=== PATIENT | female | born 1965 | race Caucasian/White ===

== ENCOUNTER 2019-12-31 13:39 | Emergency (ER) | payer OTHER ==
[2019-12-31] MEDS ORDERED: Nitroglycerin 0.4 MG Tab.SL SL PRN (14:04)
[2019-12-31] MEDS ORDERED: Ondansetron 4 MG/2 ML SDV IVPUSH ONE (14:04)
[2019-12-31] MEDS ORDERED: Acetaminophen 500 MG Tab PO ONE (14:04)
[2019-12-31] MEDS ORDERED: Aspirin 81 MG Tab.Chew PO ONE (14:04)
[2019-12-31] MEDS ORDERED: Sodium Chloride 0.9% 10 ML Syringe FLUSH PRN (14:05)
[2019-12-31] MEDS ORDERED: Sodium Chloride 0.9% 1,000 ML IV SCH (14:15)
--- NOTE | 2019-12-31 17:19 | EDM.PDOC ---
ED HPI GENERAL MEDICAL PROBLEM - General Chief Complaint: Respiratory Problem Stated Complaint: CHEST PAINS Time Seen by Provider: 12/31/19 13:50 Source of Information: Reports: Patient History Limitations: Reports: No Limitations - History of Present Illness INITIAL COMMENTS - FREE TEXT/NARRATIVE: Patient presented to the ED because of fever,chills,N/V/D, headache,body malaise . She started to have fever and dyspnea 3 days ago. She is a visitor from [place] and is staying in a hotel currently. Treatments SALES DEVELOPMENT REPRESENTATIVE: Reports: Acetaminophen Other Treatments SALES DEVELOPMENT REPRESENTATIVE: tylenol at 0900 today Middle Chest Pain Score (Numeric/FACES): 1 - Related Data Allergies Allergy/AdvReac Type Severity Reaction Status Date / Time Sulfa (Sulfonamide Allergy Swelling Verified 12/31/19 15:02 Antibiotics) Home Meds: Home Meds Diphenoxylate HCl/Atropine [Lomotil Tablet] 2 each PO Q6H PRN #15 tablet 12/31/19 [Rx] Escitalopram [Lexapro] 10 mg PO DAILY 12/31/19 [History] Gabapentin [Gralise] 600 mg PO DAILY 12/31/19 [History] Hydrocodone/Acetaminophen [[place] 5-325 Tablet] 1 each PO Q4H PRN #15 tablet 12/31/19 [Rx] Ondansetron [Zofran ODT] 4 mg PO Q4H PRN #10 tab.dis 12/31/19 [Rx] amLODIPine [Norvasc] 2.5 mg PO DAILY 12/31/19 [History] buPROPion [Wellbutrin] 100 mg PO DAILY 12/31/19 [History] Past Medical History Cardiovascular History: Reports: Hypertension Psychiatric History: Reports: Depression Social & Family History - Tobacco Use Smoking Status *Q: Former Smoker Used Tobacco, but Quit: Yes Month/Year Tobacco Last Used: 1984 ED ROS GENERAL - Review of Systems Review Of Systems: See Below Constitutional: Reports: No Symptoms Respiratory: Reports: Cough Endocrine: Reports: No Symptoms GI/Abdominal: Reports: Diarrhea, Nausea, Vomiting : Reports: No Symptoms Musculoskeletal: Reports: No Symptoms Skin: Reports: No Symptoms Neurological: Reports: No Symptoms Psychiatric: Reports: No Symptoms Hematologic/Lymphatic: Reports: No Symptoms Immunologic: Reports: No Symptoms ED EXAM, GENERAL - Physical Exam Exam: See Below Exam Limited By: No Limitations General Appearance: Alert, No Apparent Distress Ears: Normal External Exam Nose: Normal Inspection Head: Atraumatic, Normocephalic Neck: Normal Inspection Respiratory/Chest: No Respiratory Distress, Lungs Clear, Normal Breath Sounds Cardiovascular: Normal Peripheral Pulses GI/Abdominal: Normal Bowel Sounds Back Exam: Normal Inspection, Full Range of Motion Extremities: Normal Inspection, Normal Range of Motion Neurological: Alert, Oriented, CN II-XII Intact Psychiatric: Normal Affect Skin Exam: Warm Course - Vital Signs Text/Narrative:: Labs/EKG/CXR was discussed with patient and verbalized full understanding NS 1 L bolus Zofran 4 mg IV x1 Last Recorded V/S: Last Vital Signs Temp 38.9 C H 12/31/19 13:40 Pulse 95 12/31/19 13:40 Resp 18 12/31/19 13:40 BP 148/84 H 12/31/19 15:03 Pulse Ox 94 L 12/31/19 13:40 - Orders/Labs/Meds Orders: Active Orders 24 hr Category Date Time Status EKG Documentation Completion [RC] ASDIRECTED Care 12/31/19 14:07 Active Chest 1V Frontal [CR] Stat Exams 12/31/19 14:05 Taken CULTURE BLOOD [BC] Urgent Lab 12/31/19 14:30 Received CULTURE BLOOD [BC] Urgent Lab 12/31/19 14:35 Received Nitroglycerin [Nitrostat] Med 12/31/19 14:04 Active 0.4 mg SL Q5M PRN Sodium Chloride 0.9% [Normal Saline] 1,000 ml Med 12/31/19 14:15 Active IV ASDIRECTED Sodium Chloride 0.9% [Saline Flush] Med 12/31/19 14:05 Active 10 ml FLUSH ASDIRECTED PRN Blood Culture x2 Reflex Set [OM.PC] Urgent Oth 12/31/19 14:05 Ordered Saline Lock Insert [OM.PC] Routine Oth 12/31/19 14:05 Ordered EKG 12 Lead [EK] Routine Ther 12/31/19 14:05 Ordered Medication Orders Sodium Chloride (Normal Saline) 1,000 mls @ 999 mls/hr IV ASDIRECTED KIERAN Last Admin: 12/31/19 15:03 Dose: 999 mls/hr Documented by: ELO Nitroglycerin (Nitrostat) 0.4 mg SL Q5M PRN PRN Reason: Chest Pain Last Admin: 12/31/19 15:03 Dose: 0.4 mg Documented by: ELO Sodium Chloride (Saline Flush) 10 ml FLUSH ASDIRECTED PRN PRN Reason: Keep Vein Open Last Admin: 12/31/19 15:04 Dose: 10 ml Documented by: ELO Labs: Laboratory Tests 12/31/19 12/31/19 12/31/19 Range/Units 14:10 14:30 14:30 WBC 3.6 L (4.5-12.0) X10-3/uL RBC 5.14 (3.23-5.20) x10(6)uL Hgb 15.0 (11.5-15.5) g/dL Hct 46.6 (30.0-51.3) % MCV 90.7 (80-96) fL MCH 29.1 (27.7-33.6) pg MCHC 32.1 L (32.2-35.4) g/dL RDW 13.2 (11.5-15.5) % Plt Count 145 (125-369) X10(3)uL MPV 7.7 (7.4-10.4) fL Neut % (Auto) 71.4 (46-82) % Lymph % (Auto) 21.8 (13-37) % [place] % (Auto) 6.5 (4-12) % Eos % (Auto) 0 L (1.0-5.0) % Baso % (Auto) 0 (0-2) % Neut # (Auto) 2.6 (1.6-8.3) # Lymph # (Auto) 0.8 (0.6-5.0) # [place] # (Auto) 0.2 (0.0-1.3) # Eos # (Auto) 0.0 (0.0-0.8) # Baso # (Auto) 0.0 (0.0-0.2) # D-Dimer, Quantitative (0.0-0.59) mg/LFEU Sodium 133 L (135-145) mmol/L Potassium 4.3 (3.5-5.3) mmol/L Chloride 101 (100-110) mmol/L Carbon Dioxide 23 (21-32) mmol/L BUN 14 (7-18) mg/dL Creatinine 0.8 (0.55-1.02) mg/dL Est Cr Clr Drug Dosing TNP Estimated GFR (MDRD) > 60 (>60) BUN/Creatinine Ratio 17.5 (9-20) Glucose 109 (80-116) mg/dL Lactic Acid (0.4-2.0) mmol/L Calcium 8.2 L (8.6-10.2) mg/dL Total Bilirubin 0.2 (0.1-1.3) mg/dL AST 48 H (5-25) IU/L ALT 31 (12-36) U/L Alkaline Phosphatase 83 (56-112) IU/L Troponin I (4.0-60.3) pg/mL NT-Pro-B Natriuret Pep (<=125) pg/mL Total Protein 6.6 (6.0-8.0) g/dL Albumin 2.8 L (3.5-5.2) g/dL Globulin 3.8 g/dL Albumin/Globulin Ratio 0.7 SARS Virus RNA (PCR) Positive H (NEGATIVE) 12/31/19 12/31/19 12/31/19 Range/Units 14:30 14:30 14:30 WBC (4.5-12.0) X10-3/uL RBC (3.23-5.20) x10(6)uL Hgb (11.5-15.5) g/dL Hct (30.0-51.3) % MCV (80-96) fL MCH (27.7-33.6) pg MCHC (32.2-35.4) g/dL RDW (11.5-15.5) % Plt Count (125-369) X10(3)uL MPV (7.4-10.4) fL Neut % (Auto) (46-82) % Lymph % (Auto) (13-37) % [place] % (Auto) (4-12) % Eos % (Auto) (1.0-5.0) % Baso % (Auto) (0-2) % Neut # (Auto) (1.6-8.3) # Lymph # (Auto) (0.6-5.0) # [place] # (Auto) (0.0-1.3) # Eos # (Auto) (0.0-0.8) # Baso # (Auto) (0.0-0.2) # D-Dimer, Quantitative 0.60 H (0.0-0.59) mg/LFEU Sodium (135-145) mmol/L Potassium (3.5-5.3) mmol/L Chloride (100-110) mmol/L Carbon Dioxide (21-32) mmol/L BUN (7-18) mg/dL Creatinine (0.55-1.02) mg/dL Est Cr Clr Drug Dosing Estimated GFR (MDRD) (>60) BUN/Creatinine Ratio (9-20) Glucose (80-116) mg/dL Lactic Acid 0.8 (0.4-2.0) mmol/L Calcium (8.6-10.2) mg/dL Total Bilirubin (0.1-1.3) mg/dL AST (5-25) IU/L ALT (12-36) U/L Alkaline Phosphatase (56-112) IU/L Troponin I 11.4 (4.0-60.3) pg/mL NT-Pro-B Natriuret Pep (<=125) pg/mL Total Protein (6.0-8.0) g/dL Albumin (3.5-5.2) g/dL Globulin g/dL Albumin/Globulin Ratio SARS Virus RNA (PCR) (NEGATIVE) 12/31/19 Range/Units 14:30 WBC (4.5-12.0) X10-3/uL RBC (3.23-5.20) x10(6)uL Hgb (11.5-15.5) g/dL Hct (30.0-51.3) % MCV (80-96) fL MCH (27.7-33.6) pg MCHC (32.2-35.4) g/dL RDW (11.5-15.5) % Plt Count (125-369) X10(3)uL MPV (7.4-10.4) fL Neut % (Auto) (46-82) % Lymph % (Auto) (13-37) % [place] % (Auto) (4-12) % Eos % (Auto) (1.0-5.0) % Baso % (Auto) (0-2) % Neut # (Auto) (1.6-8.3) # Lymph # (Auto) (0.6-5.0) # [place] # (Auto) (0.0-1.3) # Eos # (Auto) (0.0-0.8) # Baso # (Auto) (0.0-0.2) # D-Dimer, Quantitative (0.0-0.59) mg/LFEU Sodium (135-145) mmol/L Potassium (3.5-5.3) mmol/L Chloride (100-110) mmol/L Carbon Dioxide (21-32) mmol/L BUN (7-18) mg/dL Creatinine (0.55-1.02) mg/dL Est Cr Clr Drug Dosing Estimated GFR (MDRD) (>60) BUN/Creatinine Ratio (9-20) Glucose (80-116) mg/dL Lactic Acid (0.4-2.0) mmol/L Calcium (8.6-10.2) mg/dL Total Bilirubin (0.1-1.3) mg/dL AST (5-25) IU/L ALT (12-36) U/L Alkaline Phosphatase (56-112) IU/L Troponin I (4.0-60.3) pg/mL NT-Pro-B Natriuret Pep 12 (<=125) pg/mL Total Protein (6.0-8.0) g/dL Albumin (3.5-5.2) g/dL Globulin g/dL Albumin/Globulin Ratio SARS Virus RNA (PCR) (NEGATIVE) Meds: Medications Generic Name Dose Route Start Last Admin Trade Name Freq PRN Reason Stop Dose Admin Sodium Chloride 1,000 mls @ 999 mls/hr 12/31/19 14:15 12/31/19 15:03 Normal Saline IV 999 mls/hr ASDIRECTED KIERAN Administration Nitroglycerin 0.4 mg 12/31/19 14:04 12/31/19 15:03 Nitrostat SL 0.4 mg Q5M PRN Administration Chest Pain Sodium Chloride 10 ml 12/31/19 14:05 12/31/19 15:04 Saline Flush FLUSH 10 ml ASDIRECTED PRN Administration Keep Vein Open Discontinued Medications Generic Name Dose Route Start Last Admin Trade Name Freq PRN Reason Stop Dose Admin Acetaminophen 1,000 mg 12/31/19 14:04 12/31/19 15:04 Tylenol Extra Strength PO 12/31/19 14:05 1,000 mg ONETIME ONE Administration Aspirin 324 mg 12/31/19 14:04 12/31/19 14:07 Aspirin PO 12/31/19 14:05 324 mg ONETIME ONE Administration Ondansetron HCl 4 mg 12/31/19 14:04 12/31/19 14:55 Zofran IVPUSH 12/31/19 14:05 4 mg ONETIME ONE Administration Departure - Departure Time of Disposition: 15:30 Disposition: Home, Self-Care 01 Condition: Good Clinical Impression: COVID-19 - Discharge Information Prescriptions: Diphenoxylate HCl/Atropine [Lomotil Tablet] 2 each PO Q6H PRN #15 tablet PRN Reason: Diarrhea Hydrocodone/Acetaminophen [[place] 5-325 Tablet] 1 each PO Q4H PRN #15 tablet PRN Reason: Pain Ondansetron [Zofran ODT] 4 mg PO Q4H PRN #10 tab.dis PRN Reason: Nausea Instructions: COVID-19 Referrals: PCP,None [Primary Care Provider] - Forms: ED Department Discharge Additional Instructions: Please read discharge instructions on COVID-19 isolate yourself for 2 weeks frequent hand washing wear mask at all times increase oral fluids at least 2-4 liters a day zofra/odansetron 4 mg every 4 hours as needd for nausea lomotil 2 tablets every 6 hours as needed for diarrhea Ibuprofen 800 mg with tylenol 1000 mg every 8 hours as needed for fever norco/hydrocodone 5/325, 1-2 tablets every 4-6 hours as needed for pain return to the ED if you develop any severe shortness of breath Sepsis Event Note (ED) - Evaluation Sepsis Screening Result: No Definite Risk - Focused Exam Vital Signs: Vital Signs Temp Pulse Resp BP BP Pulse Ox 12/31/19 15:03 148/84 H 12/31/19 13:40 38.9 C H 95 18 148/84 H 94 L - My Orders Last 24 Hours: My Active Orders 12/31/19 14:04 Nitroglycerin [Nitrostat] 0.4 mg SL Q5M PRN 12/31/19 14:05 Chest 1V Frontal [CR] Stat Sodium Chloride 0.9% [Saline Flush] 10 ml FLUSH ASDIRECTED PRN Blood Culture x2 Reflex Set [OM.PC] Urgent Saline Lock Insert [OM.PC] Routine EKG 12 Lead [EK] Routine 12/31/19 14:07 EKG Documentation Completion [RC] ASDIRECTED 12/31/19 14:15 Sodium Chloride 0.9% [Normal Saline] 1,000 ml IV ASDIRECTED 12/31/19 14:30 CULTURE BLOOD [BC] Urgent 12/31/19 14:35 CULTURE BLOOD [BC] Urgent - Assessment/Plan Last 24 Hours: My Active Orders 12/31/19 14:04 Nitroglycerin [Nitrostat] 0.4 mg SL Q5M PRN 12/31/19 14:05 Chest 1V Frontal [CR] Stat Sodium Chloride 0.9% [Saline Flush] 10 ml FLUSH ASDIRECTED PRN Blood Culture x2 Reflex Set [OM.PC] Urgent Saline Lock Insert [OM.PC] Routine EKG 12 Lead [EK] Routine 12/31/19 14:07 EKG Documentation Completion [RC] ASDIRECTED 12/31/19 14:15 Sodium Chloride 0.9% [Normal Saline] 1,000 ml IV ASDIRECTED 12/31/19 14:30 CULTURE BLOOD [BC] Urgent 12/31/19 14:35 CULTURE BLOOD [BC] Urgent
== END 2019-12-31 17:30 | disposition home or self-care (01) ==
LOC: FB.ED 13:39
DX: U07.1 COVID-19 (principal); I10 Essential (primary) hypertension; F32.9 Major depressive disorder, single episode, unspecified; Z87.891 Personal history of nicotine dependence; Z79.899 Other long term (current) drug therapy; Z88.2 Allergy status to sulfonamides
CPT/HCPCS: 36415; 71045; 80053; 83605; 83880; 84484; 85025; 85379; 87040; 93005; 93010; 96374; 99283; 99285-25; A9270-GY; J2405; J7030; U0002